=== PATIENT | male | born 1980 | race Caucasian/White ===

== ENCOUNTER 2019-03-27 18:49 | Emergency (ER) | payer OTHER ==
[~2019-03-27] VITALS: Ht 175.3 cm; Wt 90.3 kg
[2019-03-27 19:00] VITALS: BP 151/99
--- NOTE | 2019-03-27 19:06 | NUR ---
PT AMBULATED TO LOBBY WITH VSS.
--- NOTE | 2019-03-27 19:17 | NUR ---
EKG PERFORMED AT BEDSIDE
[2019-03-27 19:44] VITALS: BP 151/99
--- NOTE | 2019-03-27 19:44 | NUR ---
Patient discharged with v/s stable. Written and verbal after care instructions given and explained. Patient alert, oriented and verbalized understanding of instructions. Ambulatory with steady gait. All questions addressed prior to discharge. ID band removed. Patient advised to follow up with PMD. Rx of ACETAMINOPHN, KEFLEX, AND MUPIROCIN given. Patient educated on indication of medication including possible reaction and side effects. Opportunity to ask questions provided and answered.
--- NOTE | 2019-03-27 19:44 | NUR ---
38 Y/O C/O SPIDER BITE IN RT NARE X YESTERDAY. RATES PAIN 8/10 AND DESCRIBES IT PRESSURE AND ACHING. INSIDE RT NARE SHOWS REDNESS, SWELLING, AND YELLOW CRUSTY DISHCARGE. AIRWAY IS PATENT AND CLEAR. SPEECH CLEAR. VSS. A & O X4. NO DISTRESS NOTED. NKA. NO PMH.
[2019-03-27] MEDS: ACETAMINOPHEN EXTRA STRENGTH 500 MG TAB PO ONE (19:46)
== END 2019-03-27 19:44 | disposition home or self-care (01) ==
LOC: MED 18:49
DX: J34.0 Abscess, furuncle and carbuncle of nose (principal)
CPT/HCPCS: 99283